=== PATIENT | female | born 2000 | race Caucasian/White ===

== ENCOUNTER 2021-04-11 04:22 | Emergency (ER) | payer BC, SELFPAY ==
[2021-04-11 04:25] VITALS: BP 122/69; PULSE 73; RESP 16; TEMP 36.5; O2SAT 98
--- NOTE | 2021-04-11 04:55 | ED.GENADULT ---
HPI - General Adult General Chief complaint: Eye Problems Stated complaint: eyes have flashburn from welding Time Seen by Provider: 04/11/21 04:44 History of Present Illness HPI narrative: Patient is a 20-year-old female presents the emergency department with chief complaint of Welders burn. The patient reports that she was welding was wearing a helmet but started having irritation in bilateral eyes. Patient states that she feels as though she has keratitis reports symptoms of been going on less than 24 hours reports are not improved by anything reports she has some blurry vision with this. Patient reports her tetanus is up-to-date Related Data Home Medications Medication Instructions Recorded Confirmed amitriptyline 04/11/21 clonidine HCl 04/11/21 Allergies Allergy/AdvReac Type Severity Reaction Status Date / Time No Known Allergies Allergy Mild Verified 04/11/21 04:58 Review of Systems Review of Systems: A 10 system review of systems was completed on the patient and is negative except for what is stated in the HPI. Nursing and ancillary documentation was reviewed. Exam Narrative: GENERAL: Well-appearing, well-nourished, and in no acute distress. HEAD: Normocephalic, atraumatic. EYES: PERRLA and EOMI. there is fluorescein uptake in a pattern consistent with UV keratitis on both eyes ENT: Nares clear, no rhinorrhea or epistaxis. Mucous membranes moist. NECK: Supple. CHEST: Clear to auscultation. No respiratory distress. HEART: Regular rate and rhythm. No murmur heard. Normal peripheral pulses. ABDOMEN: Soft, nontender, nondistended, normal active bowel sounds. EXTREMITIES: Normal range of motion. No edema. SKIN: Warm, dry, no rash. NEURO: No focal deficits. Alert and oriented x3. PSYCH: Normal mood and affect. Course Vital Signs Vital signs: Vital Signs Temperature 36.5 C 04/11/21 04:25 Pulse Rate 73 04/11/21 04:25 Respiratory Rate 16 04/11/21 04:25 Blood Pressure 122/69 04/11/21 04:25 Pulse Oximetry 98 04/11/21 04:25 Temperature 36.5 C 04/11/21 04:25 Pulse Rate 73 04/11/21 04:25 Respiratory Rate 16 04/11/21 04:25 Blood Pressure 122/69 04/11/21 04:25 Pulse Oximetry 98 04/11/21 04:25 Medical Decision Making Vital Signs Vital Signs: Vital Signs Temperature 36.5 C 04/11/21 04:25 Pulse Rate 73 04/11/21 04:25 Respiratory Rate 16 04/11/21 04:25 Blood Pressure 122/69 04/11/21 04:25 Pulse Oximetry 98 04/11/21 04:25 Temperature 36.5 C 04/11/21 04:25 Pulse Rate 73 04/11/21 04:25 Respiratory Rate 16 04/11/21 04:25 Blood Pressure 122/69 04/11/21 04:25 Pulse Oximetry 98 04/11/21 04:25 Discharge Plan Discharge Clinical Impression: UV keratitis Qualifiers: Laterality: bilateral Qualified Code(s): H16.133 - Photokeratitis, bilateral Patient Disposition: Home, Self-Care Condition: Stable Instructions: Antibiotic Form, Corneal Flash Kiser (ED), Keratitis (ED) Prescriptions: New erythromycin 5 mg/gram (0.5 %) ointment 0.5 inch EACH EYE QID 3 Days Qty: 3.5 RF: 0 No Action clonidine HCl 0.3 mg tablet RF: 0 amitriptyline 25 mg tablet RF: 0 Follow-up/Referrals: PHYSICIAN,REHABILITATION SERVICES COORDINATOR [Primary Care Provider] - [facility] [Outside] Time of Disposition: 05:00
[2021-04-11] MEDS: TETRACAINE HCL 0.5% OPHTH SOLN 4 ML BTL 2 DROP EACH EYE (05:05)
[2021-04-11] MEDS: FLUORESCEIN SOD 1 MG/STRIP EACH EYE ×2 (05:05→05:07)
[2021-04-11] MEDS: ERYTHROMYCIN OPHTH OINTMENT 1 GM TUBE 1 APPLIC EACH EYE (05:14)
== END 2021-04-11 05:18 | disposition home or self-care (01) ==
PROVIDERS: Emergency Provider Emergency Medicine
DX: H16.133 Photokeratitis, bilateral (principal)
CPT/HCPCS: 99283; A9270

== ENCOUNTER 2025-07-07 06:56 | Emergency (ER) | payer OTHER, BC, SELFPAY ==
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
[2025-07-07 07:01] VITALS: BP 138/83; PULSE 85; RESP 15; TEMP 36.8; O2SAT 100
[2025-07-07 07:57] LABS: BEDSIDEPREGUCG Negative (Negative)
[2025-07-07] MEDS: KETOROLAC (*BKC) 60 MG/2 ML VIAL IM (08:33)
[2025-07-07 08:38] VITALS: BP 136/93; PULSE 62; RESP 14; O2SAT 100
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
== END 2025-07-07 09:39 | disposition home or self-care (01) ==
PROVIDERS: Emergency Provider Emergency Medicine
DX: S70.212A Abrasion, left hip, initial encounter (principal); V43.52XA Car driver injured in collision with other type car in traffic accident, initial encounter; W22.10XA Striking against or struck by unspecified automobile airbag, initial encounter
CPT/HCPCS: 72100; 73502; 81025; 96372; 99284; J1885; L0140